=== PATIENT | male | born 1960 | race Caucasian/White ===

== ENCOUNTER 2022-09-21 14:35 | Emergency (ER) | payer BC ==
[2022-09-21] MEDS ORDERED: Cephalexin 500 MG CAP ONE (15:13)
== END 2022-09-21 15:35 | disposition home or self-care (01) ==
LOC: MADERS 14:35
DX: S50.02XA Contusion of left elbow, initial encounter (principal); L03.114 Cellulitis of left upper limb; E11.9 Type 2 diabetes mellitus without complications; K21.9 Gastro-esophageal reflux disease without esophagitis; I10 Essential (primary) hypertension; F17.290 Nicotine dependence, other tobacco product, uncomplicated; X58.XXXA Exposure to other specified factors, initial encounter
CPT/HCPCS: 99283